=== PATIENT | female | born 1955 | race Caucasian/White ===

== ENCOUNTER 2019-10-02 19:37 | Observation (INO) ==
--- NOTE | 2019-10-02 20:06 | Diag Imaging Result Doc PS360 ---
EXAM: CHEST-1 VIEW 10/02/2019 HISTORY: CP TECHNIQUE: AP upright chest COMMENT: There is no evidence of acute cardiac or pulmonary disease and compared to 02/26/2019 there has been no significant change. IMPRESSION: No acute disease. Electronically signed by Bright Leal 10/02/2019 8:04 PM
[2019-10-02 21:20] LABS: BASO# 0.03 X1000 (0.0-0.2); BASO% 0.3 % (0.0-0.8); EOS# 0.15 X1000 (0.0-0.7); EOS% 1.3 % (0.0-10.0); HEMATOCRIT 35.4 % (37.0-47.0); HEMOGLOBIN 11.3 g/dL (12.0-16.0); IMM GRAN# 0.08 X1000 (0.0-0.04); IMM GRAN% 0.7 % (0.0-0.5); LYMPH# 3.17 X1000 (1.2-3.4); LYMPH% 26.8 % (20.5-51.1); MCH 28.6 PG (27-31); MCHC 31.9 g/dL (33-37); MCV 89.6 FL (81-99); MONO# 0.81 X1000 (0.11-0.59); MONO% 6.8 % (1.7-9.3); MPV 13.1 FL (7.4-10.4); NEUT# 7.59 X1000 (1.4-6.5); NEUT% 64.1 % (42.2-75.2); PLT 187 X1000 (130-400); RBC 3.95 XMIL (4.2-5.4); RDW 14.2 % (11.5-14.5); WBC 11.83 X1000 (4.8-10.8)
[2019-10-02 21:32] LABS: INR 0.92; PROTIME 12.5 Seconds (11.0-16.0)
[2019-10-02 21:33] LABS: PTT 29.1 Seconds (22.3-41.8)
[2019-10-02 21:56] LABS: ALB/GLOB RATIO 1.2; ALBUMIN 4.3 g/dL (3.5-5.0); CALCIUM 9.7 mg/dL (8.8-10.2); CREATININE 1.5 mg/dL (0.5-0.9); POTASSIUM 4.3 mmol/L (3.5-5.1); TOTAL BILIRUBIN 0.24 mg/dL (0.20-1.00); TOTAL PROTEIN 7.9 g/dL (6.3-8.3)
[2019-10-02] MEDS ORDERED: SOLU-MEDROL IV ONE (22:28)
[2019-10-02] MEDS ORDERED: BENADRYL IV ONE (22:28)
--- NOTE | 2019-10-02 22:29 | PROVIDER DOCUMENTATION ---
This chart was entered by Sintia William Scribe, acting as scribe for Tona Agosto MD. HPI-General Adult - General Chief Complaint: Chest Pain Stated Complaint: SENT PER DR/CHEST PAIN/SOB/HISTORY OF HEART PROB Time Seen by Provider: 10/02/19 21:35 Source: patient Allergies/Adverse Reactions: Patient Allergies Allergy/AdvReac Type Severity Reaction Status Date / Time iodine Allergy ANAPHYLAXIS Verified 12/05/18 07:42 Home Medications: Home Medication List Medication Instructions Recorded Confirmed Last Taken Type Albuterol 2.5MG/Ipratrop 0.5MG 3 ml NEB RTQ4H 10/22/18 12/05/18 12/04/18 08:00 History [Duoneb (A & A)] Albuterol Sulfate Inhaler 1 puff INH PRN PRN 10/22/18 12/05/18 12/04/18 08:00 History [Ventolin Hfa] Digoxin 125 mcg PO DAILY 12/04/18 12/05/18 12/05/18 06:00 History Furosemide [Lasix] 40 mg PO DAILY 12/04/18 12/05/18 12/05/18 06:00 History Mometasone/Formoterol [Dulera 100 2 puff INH 4XDAY PRN PRN 12/04/18 12/05/18 12/04/18 08:00 History Mcg/5 Mcg Inhaler] Prednisone 3 tab PO DAILY 12/04/18 12/05/18 12/05/18 06:00 History Sacubitril/Valsartan [Entresto 24 1 ea PO BID 12/04/18 12/05/18 12/05/18 06:00 History mg-26 mg Tablet] Metoprolol Succinate E.r. [Toprol 50 mg PO DAILY #30 tab 12/05/18 Unknown Rx Xl] Spironolactone [Aldactone] 12.5 mg PO DAILY #30 tab 12/05/18 Unknown Rx - History of Present Illness -Gen Adult Nature of Presenting Problems: pt is a 64 yr old female presenting with 2 week complaint of chest press ure/squeezing, weakness, diarrhea/nausea/vomiting, fever/chills, headache and dizziness. pt also admits chronic cough without change, pt uses 3lmp NC home o2 during day and 3lmp o2 at night. pt reports she was seen by PCP this am for same complaints, pt admits he did labs and called her this afternoon due to elevated troponin and told her to come to ER for further eval. Location of Pain/Injury: reports: chest, generalized Pain Radiation: reports: no radiation Quality of Pain: reports: aching (general), pressure (pressure/squeezing-chest) Severity: reports: mild Onset/Duration: reports: other (2 weeks) Timing: reports: still present Context/Activities at Onset: reports: light activity Modifying Factors: improves with: palpation (of right chest produces pain) Associated Symptoms: reports: chest pain, cough, diarrhea, dizziness, fatigue, fever/chills, headaches, muscle aches, nausea, vomiting. denies: back/neck pain, shortness of breath Similar Symptoms Previously?: No Recently seen or treated by another doctor?: Yes (seen by ) Review of Systems - Adult - REVIEW OF SYSTEMS - ADULT Constitutional: reports: chills, fever, fatique Eyes: denies: blurred vision, double vision Ears, Nose, Mouth & Throat: denies: sinus problem, throat pain Cardiovascular: reports: chest pain. denies: palpitations, syncope Respiratory: reports: chronic cough (no change), cough. denies: shortness of breath, wheezing Gastrointestinal: reports: diarrhea, nausea, vomiting. denies: abdominal pain Genitourinary: reports: no symptoms reported Musculoskeletal: reports: muscle aches Integumentary: reports: no symptoms reported Neurological: reports: dizziness/vertigo, headache/migraines. denies: loss of balance, syncope Psychiatric: reports: no symptoms reported Endocrine: reports: no symptoms reported Hematologic/Lymphatic: reports: no symptoms reported Allergic/Immunologic: reports: no symptoms reported All Other Systems: Reviewed and Negative Past History - Adult - PAST MEDICAL HISTORY-ADULT Review of Records: reports: Old Records Reviewed, Nursing Assessment Review, Medications Reviewed, Social history reviewed & non-contributory. Major Childhood Illnesses: reports: denies history Cardiovascular: reports: arrhythmia (Svt), HTN Respiratory: reports: asthma, COPD, sleep apnea, other (emphysema) Gastrointestinal: reports: GERD Obstetrical/Gynecological: reports: denies history Genitourinary: reports: kidney stones Musculoskeletal: reports: denies history Neurological: reports: denies history Endocrine/Immune: reports: Diabetes Other Conditions: reports: denies history - PRIOR SURGERIES/PROCEDURES Surgical/Procedure History: reports: hysterectomy, back/neck, other (throat, breast reduction, ear) - IMMUNIZATION STATUS Childhood Immunizations: See Nurse Assessment Flu Vaccine: See Nurse Assessment - FAMILY HISTORY Family History: reviewed, not pertinent - SOCIAL HISTORY Smoking: quit greater than 1 year Substance Use: denies Living Situation: alone Physical Exam-General - PHYSICAL EXAM-ADULT Initial Vital Signs Reviewed: Yes - CONSTITUTIONAL General Appearance: appears well, alert, no apparent distress, obese - EYES Eyes: PERRL/EOMI - HEAD, EARS, NOSE, MOUTH & THROAT HENMT: normocephalic/atraumatic, moist mucous membranes, normal ENT inspection - NECK Neck: non-tender, full range of motion, supple, normal inspection - RESPIRATORY Respiratory: lungs clear, normal breath sounds, other (point tenderness to right chest, reports pain reproduced with palpation) - CARDIOVASCULAR Cardiovascular: normal peripheral pulses, no edema, tachycardia - GASTROINTESTINAL (ABDOMEN) Abdominal Exam: normal bowel sounds, non tender, soft - LYMPHATIC Lymphatic: no adenopathy - MUSCULOSKELETAL Back Exam: normal inspection, no CVA tenderness, no vertebral tenderness Extremity: normal range of motion, non-tender, normal gait, normal inspection - SKIN Integumentary: normal color, normal turgor, warm/dry - NEUROLOGIC Neurologic: grossly normal, no motor/sensory deficits - PSYCHIATRIC Psych/Mental Status: normal mood/affect Progress - PLAN OF CARE/RESULTS Progress/Plan/Lab Results: Vital Signs - 8 hr 10/02/19 19:39 Temperature 97.9 F Pulse Rate 135 H Respiratory Rate 22 Blood Pressure 143/68 O2 Sat by Pulse Oximetry 96 Laboratory Results - last 24 hr 10/02/19 10/02/19 19:57 19:57 WBC 11.83 H RBC 3.95 L Hgb 11.3 L Hct 35.4 L MCV 89.6 MCH 28.6 MCHC 31.9 L RDW Std Deviation 14.2 Plt Count 187 MPV 13.1 H Immature Gran % (Auto) 0.7 H Neut % (Auto) 64.1 Lymph % (Auto) 26.8 Waller % (Auto) 6.8 Eos % (Auto) 1.3 Baso % (Auto) 0.3 Immature Gran # (Auto) 0.08 H Neut # (Auto) 7.59 H Lymph # (Auto) 3.17 Waller # (Auto) 0.81 H Eos # (Auto) 0.15 Baso # (Auto) 0.03 PT 12.5 INR 0.92 PTT (Actin FS) 29.1 Orders Category Date Time Status Cardiac Monitoring NOW Care 10/02/19 19:45 Active IV Insertion NOW Care 10/02/19 19:45 Active NEWS Score >or=5:Order NEWS Bundle S.O. NOW Care 10/02/19 19:44 Active Notify Provider of NEWS Score NOW Care 10/02/19 19:45 Active CHEST-1 VIEW [RAD] Stat Exams 10/02/19 19:45 Completed CTA [CT ANGIOGRAM THORAX] [CT] Stat Exams 10/02/19 21:47 Ordered BLOOD CULTURE [BLDCUL] Stat Lab 10/02/19 19:57 Ordered CBC WITH DIFF [HEME] Stat Lab 10/02/19 19:57 Completed CK PROFILE [SP CHEM] Stat Lab 10/02/19 19:57 Received COMPREHENSIVE METABOLIC PANEL [CHEM] Stat Lab 10/02/19 19:57 Received LACTATE, PLASMA [CHEM] Q3H Lab 10/02/19 21:07 Ordered LACTATE, PLASMA [CHEM] Q3H Lab 10/02/19 22:45 Uncollected LACTATE, PLASMA [CHEM] Q3H Lab 10/03/19 01:45 Uncollected PROTIME WITH INR [COAG] Stat Lab 10/02/19 19:57 Completed PTT [COAG] Stat Lab 10/02/19 19:57 Completed TROPONIN T HIGH SENSITIVITY Stat Lab 10/02/19 19:57 Received URINALYSIS W/POSS RFLX CULT [URINALYSIS] Stat Lab 10/02/19 19:45 Uncollected O2 Per Protocol Stat Oth 10/02/19 19:45 Completed Result Diagrams: 10/02/19 19:57 10/02/19 19:57 - EKG 1 Time of EKG reading by physician:: 19:42 EKG Read and Signed by:: Tona Agosto EKG Interpretation (*Must complete 3 of following elements*): Abnormal (non specific ST abnormality, Qwave in inferior leads) Rate: 123 Rhythm: sinus tach Bonham: normal MI Interval: normal - XRAY 1 XRAY Study: Chest Impression: Normal ( Signed EXAM: CHEST-1 VIEW 10/02/2019 HISTORY: CP TECHNIQUE: AP upright chest COMMENT: There is no evidence of acute cardiac or pulmonary disease and compared to 02/26/2019 there has been no significant change. IMPRESSION: No acute disease. Electronically signed by Bright Leal 10/02/2019 8:04 PM 10/02/192003 Interpreting Physician: Bright Leal MD Dictated Date/Time: 10/02/192002 cc: Tona Agosto MD; Sergio Lisa MD) - CONSULTS/PCP/HOSPITALIST Notification #1 *Consult/PCP/Hospitalist*: d/w Dr Lisa Time Discussed: 23:05 Consult Disposition: Admit (for observation) Departure - Departure Date of Disposition Decision: 10/02/19 Time of Disposition Decision: 23:12 DIAGNOSIS: Chest pain Disposition: ADMITTED INPATIENT 09 Certified Medical Emergency: Emergent Condition: Stable Referrals and Follow-Ups: Sergio Lisa MD [Primary Care Provider] - - Critical Care Note This patient required my direct & personal management of CC.: No Attestation - Physician/ PHUC Attestation Patient care was provided by Advanced Practice Provider:: No The physician spent face to face time with patient:: Yes Advanced Practice Provider documentation review:: Supervising physician onsite and consulted in the evaluation and care of this patient. The physician did have a face to face encounter with the patient. This chart was documented by the indicated scribe, (Sintia William Scribe) and accurately reflects the services I performed and decisions made by me, Tona Agosto MD, as attested by the provider's signature.
[2019-10-03] MEDS ORDERED: ZOFRAN IV PRN (00:58)
--- NOTE | 2019-10-03 01:03 | HISTORY AND PHYSICAL ---
PRIMARY CARE PHYSICIAN: Dr. Sergio Lisa. CHIEF COMPLAINT: Chest pain. HISTORY OF PRESENTING ILLNESS: This is a 64-year-old female with a history of asthma, COPD and diabetes mellitus type 2, who presented to the emergency department with several days history of having chest pain. She described it as pressure-like and states that she was short of breath. She was evaluated in the emergency department. Due to her presenting symptoms, it was thought that we will place her for observation for further evaluation and management. At the time of my examination the patient denied any headache, fever, chills, nausea, vomiting, diarrhea, hemoptysis, melena or weight changes, but complained of chest pain. PAST MEDICAL HISTORY: Includes asthma, COPD, diabetes mellitus type 2. PAST SURGICAL HISTORY: Hysterectomy, back surgery, mastoid surgery. ALLERGIES: Iodine. MEDICATIONS: Current medications include albuterol nebulizers q.4 hours; digoxin 125 mcg p.o. daily; Lasix 40 mg p.o. daily; metoprolol 50 mg p.o. daily; prednisone 20 mg 3 tablets p.o. daily; Entresto 24 mg/26 mg tablet 1 p.o. b.i.d.; spironolactone 12.5 mg p.o. daily. SOCIAL HISTORY: She is a former smoker. Denies any history of alcohol or illicit drug use. FAMILY HISTORY: No history of coronary disease. REVIEW OF SYSTEMS: Fourteen-point review of systems is as in HPI. Other systems negative. PHYSICAL EXAMINATION: GENERAL: Cooperative, friendly female. She is resting more comfortably now. VITAL SIGNS: Temperature 97.9 degrees, pulse 135, respirations 22, blood pressure 143/68. HEENT: Atraumatic, normocephalic. Extraocular movements intact. PERRLA. NECK: No masses. CHEST: Scattered wheezes. CARDIOVASCULAR: Regular rate and rhythm. ABDOMEN: Soft. Positive bowel sounds. EXTREMITIES: Trace edema. NEUROLOGIC: She is awake, alert and oriented x3. GENITOURINARY: No bladder distention. SKIN: Warm. LABORATORY DATA: WBC 11.83, hemoglobin 11.3, hematocrit 35.4, platelets 187,000. Sodium 139, potassium 4.3, chloride 93, CO2 is 28, BUN is 46, creatinine is 1.5, glucose 214. DIAGNOSTIC DATA: Chest x-ray: No acute disease. ASSESSMENT: A 64-year-old female with a history of asthma, chronic obstructive pulmonary disease and diabetes mellitus type 2, who had presented to the emergency department with several days history of having chest discomfort. She was evaluated in the emergency department, and due to her presenting symptoms we will place her in observation for further evaluation and management. 1. Chest pain, atypical. 2. Chronic obstructive pulmonary disease. 3. Diabetes mellitus type 2. PLAN: 1. We will admit the patient to the medical floor with telemetry. 2. Continue cardiac workup. Check EKG, serial cardiac enzymes, have patient continue on aspirin. We will consult Cardiology. 3. Continue with DuoNeb p.r.n. 4. Monitor blood glucose. Put patient on sliding scale insulin regimen. 5. Put patient on DVT prophylaxis with SCDs. 6. We will continue to follow, reassess and make further recommendations based on the patient's clinical course. cc: Marco Antonio Lisa MD
[2019-10-03] MEDS: DUONEB (A & A) INH SCH ×6 (01:19→20:15)
[2019-10-03 04:51] LABS: BASO# 0.02 X1000 (0.0-0.2); BASO% 0.2 % (0.0-0.8); EOS# 0.15 X1000 (0.0-0.7); EOS% 1.4 % (0.0-10.0); HEMATOCRIT 30.2 % (37.0-47.0); HEMOGLOBIN 9.6 g/dL (12.0-16.0); LYMPH# 2.97 X1000 (1.2-3.4); MCHC 31.8 g/dL (33-37); MCV 91.2 FL (81-99); MONO# 0.93 X1000 (0.11-0.59); MONO% 8.4 % (1.7-9.3); MPV 13.2 FL (7.4-10.4); NEUT# 6.95 X1000 (1.4-6.5); PLT 137 X1000 (130-400); RBC 3.31 XMIL (4.2-5.4); RDW 14.3 % (11.5-14.5); WBC 11.02 X1000 (4.8-10.8)
[2019-10-03 05:57] LABS: CHOLESTEROL 235 mg/dL (0-200); HDL 24 mg/dL (45-65); TRIGLYCERIDES 1424 mg/dL (35-135); VLDL 285 mg/dL
[2019-10-03 05:58] LABS: LDL 57 mg/dL
[2019-10-03] MEDS: PRILOSEC PO SCH (08:03)
--- NOTE | 2019-10-03 08:19 | EKG Report ---
Test Performed on : 10/02/2019 7:42:54 PM Test Reason : ED. NO EKG ORDER FOR MUSE Blood Pressure : / mmHG Vent. Rate : 123 BPM Atrial Rate : 123 BPM P-R Int : 144 ms QRS Dur : 074 ms QT Int : 332 ms P-R-T Axes : 037 087 062 degrees QTc Int : 475 ms Sinus tachycardia. Nonspecific ST abnormality Abnormal ECG When compared with ECG of 04-DEC-2018 09:26, No significant change was found Unconfirmed Result
[2019-10-03] MEDS: TOPROL XL PO SCH (08:45)
[2019-10-03] MEDS: LANOXIN PO SCH (08:45)
[2019-10-03] MEDS ORDERED: ASPIRIN PO SCH (09:00)
[2019-10-03] MEDS ORDERED: LASIX PO SCH (09:00)
[2019-10-03 09:52] LABS: URINE SOURCE CLEAN CATCH
[2019-10-03 10:08] LABS: BILIRUBIN URINE NEGATIVE (NEGATIVE); BLOOD URINE SMALL (NEGATIVE); COLOR YELLOW; GLUCOSE URINE NEGATIVE (NEGATIVE); KETONE URINE NEGATIVE (NEGATIVE); LEUKOCYTES URINE TRACE (NEGATIVE); NITRITE URINE NEGATIVE (NEGATIVE); PH URINE 5.5; PROTEIN URINE TRACE mg/dL (NEGATIVE); SP GRAVITY URINE 1.022; TURBIDITY URINE CLEAR (CLEAR); UROBILINOGEN URINE NORMAL (NORMAL)
[2019-10-03 10:12] LABS: UR EPITHELIAL CELLS <10 /HPF (<10); URINE BACTERIA 1+ /HPF; URINE RBC <10 /HPF (<10); URINE WBC <10 /HPF (<10)
[2019-10-03] MEDS ORDERED: DULERA 100 MCG/5 MCG INHALER INH PRN (11:37)
--- NOTE | 2019-10-03 11:39 | EKG Report ---
Test Performed on : 10/03/2019 11:30:04 AM Test Reason : Follow up heart rhythm Blood Pressure : / mmHG Vent. Rate : 109 BPM Atrial Rate : 109 BPM P-R Int : 150 ms QRS Dur : 082 ms QT Int : 334 ms P-R-T Axes : 052 076 063 degrees QTc Int : 449 ms Sinus tachycardia. Nonspecific ST abnormality Abnormal ECG When compared with ECG of 02-OCT-2019 19:42, (Unconfirmed) No significant change was found Confirmed by Ruthie Ryder MD ([id number]) on 10/04/2019 4:57:14 PM
[2019-10-03 12:16] LABS: AMYLASE 15 U/L (20-200); LIPASE 38 U/L (13-60)
--- NOTE | 2019-10-03 12:55 | SEPSIS: TISSUE PERFUSION ASSMT ---
Sepsis: Tissue Perfusion Assmt - Physical Exam Assessment Date: 10/03/19 Time Assessment Initialized: 12:00 Vital Signs: Last Vital Signs Temp 98.0 F 10/03/19 07:49 Pulse 107 H 10/03/19 09:17 Resp 18 10/03/19 09:17 BP 112/57 10/03/19 07:49 Pulse Ox 99 10/03/19 09:17 Height 5 ft 6 in Weight 113.806 kg Lung Sounds: lungs clear Heart Sounds: Regular Capillary Refill Time: Less Than 2 Seconds Peripheral Pulse Evaluation: radial (R): 2+, radial (L): 2+, dorsalis-pedis (R): 2+, dorsalis-pedis (L): 2+, posterior tibialis (R): 2+ Skin Exam: pink - Alternative Fluid Bolus Bolus Option: Alternative Fluid Resuscitation Bolus for morbidly obese patients with a BMI >30, Refer to [facility] [place] Body Weight Chart for Reference. Is patient's BMI >30?: Yes Fluid Bolus dosed using the [place] Body Weight Chart: No (Patient has symptoms of volume overload.) - Impression Impression: Tissue Perfusion Adequate
[2019-10-03] MEDS: LOVENOX SUBQ SCH (13:01)
--- NOTE | 2019-10-03 13:24 | PROGRESS NOTE ---
DATE: 10/03/2019 INTERVAL HISTORY: No acute events overnight. Ms. Bueno is feeling the same as she did yesterday. She denies any more chest pain or shortness of breath. She is a little nauseous, but without any vomiting. She has occasional abdominal pain. She has not had any bowel movement. We discussed about possibilities of acute viral gastroenteritis. We also discussed about the abnormal troponins and D-dimer. VITALS: Currently temperature of 98 degrees, pulse of 107, respiratory rate 18, blood pressure of 112/57. She is saturating 99% on 3 L nasal cannula. PHYSICAL EXAMINATION: General: Not in acute distress. Oral cavity: Moist. Lungs: Air entry bilaterally equal. No wheeze, rhonchi, or crackles. Cardiovascular: S1, S2 normal. No murmur, rub, or gallop. Abdomen: Obese soft, generalized tenderness, especially in epigastric and hypogastric region. Active bowel sounds. Extremities: Mild lower extremity edema. Neurologic: She is alert and oriented x3. LABS: Suggestive of WBC of 11,000, hemoglobin 9.6, platelets of 137,000. Coagulation profile had elevated D-dimer. Chemistry suggestive of acute kidney injury. Repeat BMP is pending. Troponin high sensitivity has been less than 20. She also had lactic acidosis on presentation. ASSESSMENT AND PLAN: 1. Suspected sepsis considering mild leukocytosis, lactic acidosis, tachycardia and leukocytosis on presentation. However, this could just be in the setting of acute viral gastroenteritis. She has not had any fever and leukocytosis was only mild. I will get CT scan of the abdomen and pelvis to evaluate the extent of gastroenteritis before starting her intravenous antibiotics. Considering she has lower extremity edema, I would avoid intravenous fluids at the moment. She also has history of congestive heart failure. Her symptoms of chest discomfort, shortness of breath and cough could just be in the setting of acute viral syndrome. 2. Right abdominal wall cyst: Inflamed. No pus point. Start on antibiotics. 2. History of nonischemic cardiomyopathy and chronic systolic congestive heart failure with ejection fraction of 20%, and history of supraventricular tachycardia. I will continue her home digoxin, extended-release metoprolol, spironolactone and Lasix. I will also keep her on her home Entresto. I will modify the regimen based on her repeat kidney function. 3. History of chronic obstructive pulmonary disease, chronic hypoxic respiratory failure, tobacco abuse. She quit in September 2018. I congratulated her. Continue albuterol ipratropium inhalation. 4. History of non insulin-dependent diabetes mellitus. I will start her on sliding scale insulin, as well as diabetic diet. 5. Hypertriglyceridemia. Her amylase and lipase have been negative, ruling out acute pancreatitis. I will repeat lipid panel tomorrow. She may need a statin or a Fibrates depending on repeat cholesterol profile. DISPOSITION: Continue to monitor patient inside the hospital. I will also get ultrasound lower extremities to rule out DVT considering her elevated D-dimer. All of patient's questions have been answered. cc: Jared Marsh MD MTDCleopatra
--- NOTE | 2019-10-03 14:12 | Diag Imaging Result Doc PS360 ---
EXAM: CT ABDOMEN/PELVIS W/O CONTRAST INDICATION: Evaluate for bacterial gastro enteritis TECHNIQUE: This exam was performed using automated exposure control, adjustment of mA or kV according to patient size, and/or use of iterative reconstruction technique. COMPARISON: 12/21/2017 FINDINGS: There is mild to moderate hepatic steatosis. The gallbladder, spleen, pancreas, and adrenal glands are unremarkable. There is a stable hyperdense nodule at the posterior upper pole of the right kidney that statistically most likely represents a blood filled cyst. There is another stable nodule at the lower pole of the right kidney that is higher density than that of simple fluid that also probably represents a bladder protein filled cyst. However, they are technically nonspecific on unenhanced CT. The kidneys are essentially unremarkable, otherwise. The urinary bladder appears normal. There has been a prior hysterectomy. There is no evidence of focal bowel wall thickening and no bowel obstruction is appreciated. The stomach is grossly unremarkable as imaged with unenhanced CT. No focal inflammatory changes, free abdominal gas, or free fluid is appreciated. There is mild aortic atherosclerotic disease. There are spinal degenerative changes. There is no evidence of acute osseous abnormality. IMPRESSION: 1.Mild to moderate hepatic steatosis. 2.A couple of stable hypodense nodules associated with the right kidney that statistically most likely represent blood filled or protein filled cysts. 3.No definite focal bowel wall thickening is appreciated by unenhanced CT. Electronically signed by Douglas Diana 10/03/2019 2:10 PM
[2019-10-03 15:06] LABS: CALCIUM 9.3 mg/dL (8.8-10.2); CREATININE 1.3 mg/dL (0.5-0.9); POTASSIUM 3.7 mmol/L (3.5-5.1)
[2019-10-03] MEDS ORDERED: DUONEB (A & A) INH SCH (15:30)
[2019-10-03] MEDS: AUGMENTIN PO SCH ×2 (17:26→21:56)
[2019-10-03] MEDS: HUMALOG SUBQ SCH ×2 (17:26→21:57)
[2019-10-03] MEDS ORDERED: ENTRESTO 24 MG-26 MG TABLET PO SCH (21:00)
[2019-10-03] MEDS: ATIVAN PO SCH (21:56)
[2019-10-04] MEDS: DUONEB (A & A) INH SCH ×7 (03:50→23:07)
[2019-10-04] MEDS: DULCOLAX PR SCH ×3 (04:56→20:35)
[2019-10-04] MEDS: HUMALOG SUBQ SCH ×4 (06:04→20:36)
[2019-10-04] MEDS: PRILOSEC PO SCH (06:04)
[2019-10-04 08:09] LABS: BASO# 0.02 X1000 (0.0-0.2); BASO% 0.2 % (0.0-0.8); EOS# 0.11 X1000 (0.0-0.7); EOS% 1.2 % (0.0-10.0); HEMATOCRIT 29.8 % (37.0-47.0); HEMOGLOBIN 9.3 g/dL (12.0-16.0); IMM GRAN# 0.06 X1000 (0.0-0.04); IMM GRAN% 0.7 % (0.0-0.5); LYMPH# 1.78 X1000 (1.2-3.4); LYMPH% 19.7 % (20.5-51.1); MCH 28.4 PG (27-31); MCHC 31.2 g/dL (33-37); MCV 90.9 FL (81-99); MONO# 0.62 X1000 (0.11-0.59); MONO% 6.9 % (1.7-9.3); MPV 12.6 FL (7.4-10.4); NEUT# 6.44 X1000 (1.4-6.5); NEUT% 71.3 % (42.2-75.2); PLT 112 X1000 (130-400); RBC 3.28 XMIL (4.2-5.4); RDW 14.3 % (11.5-14.5); WBC 9.03 X1000 (4.8-10.8)
[2019-10-04 08:31] LABS: ALB/GLOB RATIO 1.5; ALBUMIN 3.8 g/dL (3.5-5.0); CALCIUM 8.8 mg/dL (8.8-10.2); POTASSIUM 3.7 mmol/L (3.5-5.1); TOTAL BILIRUBIN 0.32 mg/dL (0.20-1.00); TOTAL PROTEIN 6.4 g/dL (6.3-8.3)
[2019-10-04] MEDS ORDERED: LASIX IV ONE (08:54)
[2019-10-04] MEDS ORDERED: LASIX PO SCH (09:00)
[2019-10-04 09:09] LABS: CHOLESTEROL 235 mg/dL (0-200); HDL 24 mg/dL (45-65); TRIGLYCERIDES 1377 mg/dL (35-135)
[2019-10-04] MEDS: ATIVAN PO SCH ×2 (09:17→20:36)
[2019-10-04] MEDS: ALDACTONE PO SCH (09:17)
[2019-10-04] MEDS: TOPROL XL PO SCH (09:17)
[2019-10-04] MEDS: LANOXIN PO SCH (09:18)
[2019-10-04] MEDS: AUGMENTIN PO SCH ×2 (09:18→20:36)
[2019-10-04] MEDS: ENTRESTO 24 MG-26 MG TABLET PO SCH ×2 (09:18→20:35)
[2019-10-04] MEDS: TYLENOL PO PRN (09:27)
[2019-10-04] MEDS: INVOKANA PO SCH (09:28)
--- NOTE | 2019-10-04 12:14 | PROGRESS NOTE ---
DATE: 10/04/2019 INTERVAL HISTORY: No acute events overnight. SUBJECTIVE: Ms. Haney is feeling the same. She denies any chest pain. She denies any shortness of breath. Her chest pain and shortness of breath are close to her baseline. She had a CT scan yesterday which did not have any acute findings. She continues to have hyperlipidemia and hypertriglyceridemia for which I am starting her on medications. We discussed about giving her additional Lasix. VITAL SIGNS: Temperature of 98 degrees, pulse of 116, respiratory rate 16, blood pressure of 120/62. She is saturating 98% on 3 L nasal cannula. PHYSICAL EXAMINATION: General: In mild distress. HEENT: Oral cavity is moist. Lungs: Air entry bilaterally equal. No wheeze or rhonchi. She has crackles in bilateral infrascapular region. Cardiovascular: S1, S2 normal. No murmur, rub, or gallop. Abdomen: Obese, soft. Mild tenderness which has significantly decreased. Right lower quadrant has what appears to be an inflamed cyst. The inflammation appears to be less today than before. She has active bowel sounds. Extremities: She has mild lower extremity edema. Neurologic: She is alert and oriented x3. LABORATORY DATA: Suggestive of decreasing leukocyte count to 9000, hemoglobin 9.3, platelet of 112,000. Her BUN is improving to 33, creatinine of 1. Her blood glucose is 198. She continues to have hypertriglyceridemia and hyperlipidemia. MICROBIOLOGY: Urine culture is growing gram-negative rods, though she is denying any complaints of dysuria, increasing frequency of urination. IMAGING: CT scan of the abdomen and pelvis had moderate hepatic steatosis and a renal cyst. No definitive focal inflammatory changes. ASSESSMENT AND PLAN: 1. Suspected sepsis. Considering leukocytosis, lactic acidosis, tachycardia, now ruled out. Blood culture has not shown any growth to date. Though urine culture has gram-negative rods, she is denying any urinary symptoms so I will not treat it. 2. Right abdominal wall cyst with some infection/inflammation. There is no pus pointing. There might be underlying infection but I am not suspecting it to contribute to sepsis. I will continue her on oral Augmentin. 3. History of nonischemic cardiomyopathy and acute on chronic systolic congestive heart failure with ejection fraction of 20% and history of supraventricular tachycardia. Continue home digoxin, extended-release metoprolol, spironolactone. I will give her an additional dose of intravenous Lasix. I will also continue her home Entresto. 4. History of chronic obstructive pulmonary disease and chronic hypoxic respiratory failure. Continue albuterol ipratropium inhalation. She is not in acute exacerbation. She quit tobacco in September 2018. 5. History of noninsulin-dependent diabetes mellitus, uncontrolled with hyperglycemia. Continue sliding scale insulin and we will start her on canagliflozin. 6. Hyperlipidemia and hypertriglyceridemia. She did not have any signs of pancreatitis. She is not listed to be taking any medications for cholesterol. I will start her on atorvastatin and fenofibrate. 7. Disposition. I will monitor patient inside the hospital. Plan of care discussed with her. Her questions have been satisfactorily answered. cc: Jared Marsh MD MTDD
[2019-10-04] MEDS: LOVENOX SUBQ SCH (13:11)
[2019-10-04] MEDS ORDERED: LASIX PO ONE (16:00)
[2019-10-04] MEDS ORDERED: LOFIBRA PO SCH (21:00)
[2019-10-04] MEDS ORDERED: LIPITOR PO SCH ×2 (21:00)
[2019-10-05] MEDS: TYLENOL PO PRN ×2 (02:00→10:00)
[2019-10-05] MEDS: DUONEB (A & A) INH SCH ×3 (04:05→11:41)
[2019-10-05] MEDS: HUMALOG SUBQ SCH ×2 (06:13→11:35)
[2019-10-05] MEDS: PRILOSEC PO SCH (06:14)
[2019-10-05] MEDS ORDERED: LASIX PO SCH (09:00)
[2019-10-05] MEDS: LANOXIN PO SCH (09:47)
[2019-10-05] MEDS: ALDACTONE PO SCH (09:50)
[2019-10-05] MEDS: AUGMENTIN PO SCH (09:51)
[2019-10-05] MEDS: ATIVAN PO SCH (09:51)
[2019-10-05] MEDS: ENTRESTO 24 MG-26 MG TABLET PO SCH (09:51)
[2019-10-05] MEDS: TOPROL XL PO SCH (09:51)
[2019-10-05] MEDS: DULCOLAX PR SCH (09:51)
[2019-10-05] MEDS: INVOKANA PO SCH (09:52)
[2019-10-05 11:48] VITALS: BP 110/52
--- NOTE | 2019-10-05 12:28 | PROGRESS NOTE ---
DATE: 10/05/2019 INTERVAL HISTORY: No acute events overnight. SUBJECTIVE: Ms. Bueno is feeling better. Denies new complaints. We discussed about her tachycardia. I could review her previous use in 2019, where she was found to be tachycardic as well, with heart rate as high as 105. Ms. Bueno otherwise denies new complaints. VITALS: Temperature 98.2 degrees, pulse 121, respiratory 13, blood pressure 109/50, saturating 96% on room air. PHYSICAL EXAMINATION: General: Not in acute distress. Oral cavity: Moist. Respiratory: Air entry bilaterally equal. No wheeze, rhonchi or crackles. Cardiovascular: S1, S2 normal. Tachycardic. No murmur or gallop. Abdomen: Soft, obese, nontender. Extremities: No lower extremity edema. Neurologic: She is alert and oriented x3. LABORATORY DATA: No new labs today. Her blood work has been well controlled currently. MICROBIOLOGY: Urine culture is growing Escherichia coli, though she states that she did not have any symptoms. ASSESSMENT AND PLAN: 1. Right abdominal wall abscess with some infection and inflammation. Continue Augmentin. 2. History of nonischemic cardiomyopathy and acute on chronic systolic congestive heart failure with ejection fraction of 20%, as well as history of supraventricular tachycardia. Continue oral digoxin, extended-release metoprolol, spironolactone and Lasix. Also continue home Entresto. 3. History of chronic obstructive pulmonary disease and chronic hypoxic respiratory failure. Continue home albuterol/ipratropium nebulization. She quit tobacco in 2019. 4. History of non insulin-dependent diabetes mellitus with hyperglycemia. Continue sliding scale insulin and canagliflozin. 5. Hyperlipidemia and hypertriglyceridemia. Continue atorvastatin. 6. Persistent tachycardia. This could be normal for her as she was previously tachycardic on previous records as well. Her EKG just suggests sinus tachycardia. I will get lung nuclear medicine scan to rule out pulmonary embolism. Plan of care discussed with her. Her questions have been answered. cc: Jared Marsh MD
[2019-10-05] MEDS: LOVENOX SUBQ SCH (13:11)
--- NOTE | 2019-10-05 14:13 | Diag Imaging Result Doc PS360 ---
EXAM: CHEST-2 VIEWS HISTORY: after V/Q scan TECHNIQUE: Two views COMPARISON: 10/02/2019 FINDINGS: The lungs are well expanded. The heart is not enlarged. The vessels are not distended. There are no infiltrates. No pleural effusions. IMPRESSION: No acute abnormality. Electronically signed by Nawaf Poe 10/05/2019 2:10 PM
--- NOTE | 2019-10-05 14:16 | Diag Imaging Result Doc PS360 ---
EXAM: LUNG SCAN / VQ HISTORY: Rule out PE. TECHNIQUE: Nuclear medicine ventilation/perfusion lung scan COMPARISON: X-ray taken 15 minutes after the exam FINDINGS: Three 5.9 mCi DTPA used for the ventilation images. 6.1 mCi MAA given intravenously for the perfusion images. There are no wedge shaped perfusion defects. No ventilation perfusion mismatches. IMPRESSION: No pulmonary embolus. Electronically signed by Nawaf Poe 10/05/2019 2:14 PM
--- NOTE | 2019-10-05 20:37 | DISCHARGE SUMMARY ---
ADMISSION DATE: 10/03/2019 DISCHARGE DATE: 10/05/2019 DISCHARGE DISPOSITION: Home. DISCHARGE CONDITION: Hemodynamically stable. The patient denies any chest discomfort, shortness of breath, nausea, vomiting, or abdominal pain. She has chronic hypoxic respiratory failure and she is on baseline needs for her oxygen levels. DISCHARGE DIAGNOSES: 1. Atypical chest discomfort 1. Right lower abdominal wall infected cyst. 2. Mild acute exacerbation of chronic systolic congestive heart failure. 3. Sinus tachycardia. 4. Hyperlipidemia. 5. Hypertriglyceridemia. 6. Uncontrolled type 2 diabetes mellitus with hyperglycemia OTHER DIAGNOSES: 1. History of nonischemic cardiomyopathy. 2. History of chronic systolic congestive heart failure with ejection fraction of 20%. 3. History of supraventricular tachycardia. 4. History of chronic obstructive pulmonary disease and chronic hypoxic respiratory failure on home 2 to 3 L nasal cannula oxygen. 5. History of wet-xflviyr-sidjebctw diabetes mellitus with uncontrolled hyperglycemia, type 2. 6. History of asthma. DISCHARGE MEDICATIONS: 1. Lorazepam 0.5 mg b.i.d. 2. Celecoxib 100 mg daily. 3. Digoxin 125 mcg daily. 4. Dulera 2 puffs inhaled. 5. DuoNeb 3 mL inhaled every 4 hours. 6. Entresto 24/26 mg tablet, 1 tablet b.i.d. 7. Metformin 1000 mg b.i.d. 8. Furosemide 40 mg daily. 9. Albuterol sulfate 1 puff inhaled as needed. 10. Atorvastatin 40 mg at nighttime. 11. Augmentin 875 mg every 12 hours, 6 tablets have been prescribed for right abdominal wall infected cyst. 12. Spironolactone 12.5 mg daily. 13. Invokana 100 mg daily. 14. Toprol extended release 50 mg daily. VITALS AT TIME OF DISCHARGE: Temperature 98.1 degrees, pulse 111, respiratory rate 13, blood pressure 110/52, saturating 100% on 2 L nasal cannula. PHYSICAL EXAMINATION: Not in acute distress. Oral cavity is moist. Air entry bilaterally equal. No wheeze or crackles, S1, S2 normal. No murmur or gallop. The abdomen is soft, nontender, about 2 x 2 cm cyst in the right lower quadrant abdominal wall with decreasing inflammation as compared to previous examination. Active bowel sounds. No lower extremity edema. Ms. Bueno was alert and oriented x3 and was able to engage in the conversation meaningfully. She was able to come out of bed and go to the bathroom independently. SIGNIFICANT LABORATORIES DURING HOSPITAL ADMISSION AND DISCHARGE: WBC 9000, hemoglobin 9.3, platelet 112,000, BUN 33, creatinine 1, blood glucose 218. Triglyceride 1300, total cholesterol 235, LDL 57, HDL 24. Microbiology: Urine culture was growing Escherichia coli which was sensitive to cefazolin, as well as ampicillin, though the patient did not have any symptoms, so likely asymptomatic bacteriuria. SIGNIFICANT IMAGING DURING HOSPITAL ADMISSION: Chest x-ray on presentation did not have any acute disease. Abdomen and pelvis CT on October 03 had mild to moderate hepatic steatosis, hypodense nodules associated with right kidney, which most likely represented blood-filled or protein-filled cyst without any focal bowel wall thickening. Lung V/Q scan on September did not have any pulmonary embolus. Electrocardiogram on presentation had sinus tachycardia, nonspecific ST-T wave abnormalities. HOSPITAL COURSE SUMMARY: Ms. Bueno is a 64-year-old lady who had prior history of asthma, COPD, who had gone to see her regular doctor for chest discomfort and subjective feeling of shortness of breath and her regular doctor had ordered some blood test and she was found to have slight elevation of troponin and slight elevation of D-dimer, so she was advised to come to the hospital for further management. In the emergency room, she was found to have a temperature of 97.9 degrees, pulse of 135, respiratory rate of 22, blood pressure of 143/68, and she was saturating 96% on nasal cannula. Initial lab work had suggested WBC of 11.8 and a creatinine of 1.5. She also had lactic acidosis of 2.5. She was admitted for suspected sepsis of unclear source and was admitted for further management of her chest pain. Initially, it was thought that her presentation was most likely related to nonspecific viral syndrome. Blood culture did not have any growth and she was not started on any antibiotics. She was found to have mild acute congestive heart failure exacerbation and was given intravenous Lasix. The patient was later on changed to oral Lasix. After 24 to 48 hours' hospital stay, the patient's symptoms had significantly improved, though she persistently had tachycardia so a D- dimer was collected, which was slightly elevated at 0.9. Ultrasound of lower extremity and V/Q scan was performed. The V/Q scan did not have any pulmonary embolism. Preliminary report of ultrasound of lower extremity did not have any DVT. At the time of discharge, the patient was back to her baseline and she was discharged home. TIME SPENT: Thirty-two minutes were spent discharging this patient. cc: MD TIMOTHY Nath
--- NOTE | 2019-10-07 11:50 | Extremity Venous Study ---
PROCEDURE NAME: Venous U/S Bilateral Legs - 10/03/2019 REFERRING PHYSICIAN: Jared Marsh MD READING PHYSICIAN: Glenn Collazo MD ATTENDING PHYSICIAN: [place] INDICATIONS: Leg swelling and cramps. FINDINGS: The deep and superficial veins of both lower extremities were imaged throughout their course. They are compressible, patent without thrombus. INTERPRETATION: No DVT or SVT of either lower extremity. cc: MD Jared Kee MD
== END 2019-10-05 15:32 | disposition home or self-care (01) ==
LOC: 3N 19:37 → ED 19:37 → OBSVTOIN 10-03 00:32 → SUATTDRO 10-03 00:32 → INTOOBSV 10-03 00:32
PROVIDERS: ATTEND Internal Medicine